=== PATIENT | male | born 1985 | race Caucasian/White ===

== ENCOUNTER 2019-08-05 18:16 | Inpatient (IN) | payer OTHER ==
[~2019-08-05] VITALS: Ht 180.3 cm; Wt 69.0 kg
--- NOTE | 2019-08-05 18:36 | NUR ---
"PT WAS AT [facility] YESTERDAY Dx WITH EPIDIDYMITIS ON ATB PO Rx CAME IN WITH FEVER OF 103.0 F" PT AAOX4, -SOB, NAD NOTED, VSS ,PENDING MD MCGINNIS
[2019-08-05] MEDS ORDERED: IBUPROFEN 600 MG TABLET PO ONE ×2 (19:00→19:21)
[2019-08-05] MEDS ORDERED: ACETAMINOPHEN ES 500 MG TABLET PO ONE (19:00)
[2019-08-05] MEDS ORDERED: IV NS 0.9% 1,000 ML BAG IV ONE (19:00)
[2019-08-05 19:09] LABS: BASOPHILS % (AUTO) 0.4 % (0.0-2.0); EOSINOPHILS % (AUTO) 0.2 % (0.0-6.0); HEMATOCRIT 36 % (39-51); LYMPHOCYTES # (AUTO) 1.3 /CMM (0.8-4.8); MEAN CORPUSCULAR HGB CONC 34 g/dl (31.0-36.0); MEAN CORPUSCULAR VOLUME 79 fL (80-96); MONOCYTES # (AUTO) 0.4 /CMM (0.1-1.30); MONOCYTES % (AUTO) 6.2 % (2.0-12.0); NEUTROPHILS # (AUTO) 4.6 /CMM (1.8-8.9); NEUTROPHILS % (AUTO) 72.2 % (43.0-81.0); PLATELET COUNT (AUTO) 214 /CMM (150-450); WHITE BLOOD COUNT (AUTO) 6.3 K/uL (4.3-11.0)
[2019-08-05] MEDS ORDERED: ACETAMINOPHEN ES 500 MG TABLET ONE (19:21)
[2019-08-05] MEDS ORDERED: CEFTRIAXONE 1GM BAG (ER ONLY) 1 GM/50 ML PIGGYBACK IV ONE (19:30)
[2019-08-05] MEDS ORDERED: DOXYCYCLINE 100 MG in IV D5W 100 ML IV ONE (19:30)
[2019-08-05 19:36] LABS: BILIRUBIN,DIRECT 0.1 mg/dL (0.0-0.2); BILIRUBIN,TOTAL 0.2 mg/dL (0.2-1.0); CALCIUM, SERUM 8.8 mg/dL (8.5-10.1); CREATININE 1.2 mg/dL (0.6-1.3); POTASSIUM 3.9 mmol/L (3.5-5.1); TOTAL PROTEIN, SERUM 8.5 g/dL (6.4-8.2)
--- NOTE | 2019-08-05 19:58 | NUR ---
PAGED DR MERCEDES
[2019-08-05] MEDS ORDERED: HYDROCODONE/APAP 10/325MG 1 EA TABLET PO PRN (20:30)
[2019-08-05] MEDS ORDERED: MAG HYDROX/AL HYDROX/SIMETH 30 ML UDC PO PRN (20:30)
[2019-08-05] MEDS ORDERED: Z GUARD REMEDY 2 OZ OINT TP PRN (20:30)
[2019-08-05] MEDS ORDERED: ONDANSETRON HCL/PF 4 MG/2 ML VIAL IVP PRN (20:30)
[2019-08-05] MEDS ORDERED: ZOLPIDEM TARTRATE 5 MG TABLET PO PRN (20:30)
[2019-08-05] MEDS ORDERED: MAGNESIUM HYDROXIDE 30 ML UDC PO PRN (20:30)
[2019-08-05] MEDS ORDERED: BICT1TAB PO (21:42)
[2019-08-05 21:50] VITALS: BP 127/75
[2019-08-05 22:00] VITALS: BP 127/75
--- NOTE | 2019-08-05 22:00 | NUR ---
MS/RN OPENING NOTES PT RECEIVED FROM VIA WHEELCHAIR. AAOX4. ON ROOM AIR, BREATHING EVEN AND UNLABORED. DENIES SOB AND PAIN AT THIS TIME. IN NO ACUTE DISTRESS. IV TO LAC PATENT AND INTACT WITH DOXYCYCLINE ONGOING FROM ER. BELONGINGS LIST COMPLETED. HOME MEDS TO BE SENT DOWN TO PHARMACY. ORIENTED PT TO ROOM AND CALL LIGHT. HOB ELEVATED. SIDE RAILS UPX2. BED IN LOW/LOCKED POSITION WITH CALL LIGHT IN REACH. WILL CONTINUE TO MONITOR
--- NOTE | 2019-08-05 22:12 | NUR ---
REPORT GIVEN TO HEMALATHA SHIPLEY FOR DEBORAH; PT WILL BE TRANSPORTED TO 3RD FLOOR VIA ACLS PROTOCOL
--- NOTE | 2019-08-05 22:45 | NUR ---
MS/RN NOTES DR. MERCEDES AT BEDSIDE TO ASSESS PT.
[2019-08-05] MEDS: IV NS 0.9% 1,000 ML IV PRN (23:02)
[2019-08-06 06:54] LABS: BASOPHILS % (AUTO) 0.3 % (0.0-2.0); EOSINOPHILS % (AUTO) 0.8 % (0.0-6.0); HEMATOCRIT 39 % (39-51); HEMOGLOBIN 12.5 g/dL (13.5-17.5); LYMPHOCYTES # (AUTO) 1.2 /CMM (0.8-4.8); LYMPHOCYTES % (AUTO) 18.9 % (20.0-44.0); MEAN CORPUSCULAR HGB CONC 33 g/dl (31.0-36.0); MEAN CORPUSCULAR VOLUME 81 fL (80-96); MONOCYTES # (AUTO) 0.5 /CMM (0.1-1.30); MONOCYTES % (AUTO) 7.4 % (2.0-12.0); NEUTROPHILS # (AUTO) 4.5 /CMM (1.8-8.9); NEUTROPHILS % (AUTO) 72.6 % (43.0-81.0); PLATELET COUNT (AUTO) 197 /CMM (150-450); RED BLOOD CELL COUNT(AUTO) 4.78 MIL/uL (4.5-6.0); WHITE BLOOD COUNT (AUTO) 6.2 K/uL (4.3-11.0)
--- NOTE | 2019-08-06 07:30 | NUR ---
RN MS NOTES PT IN BED, ASLEEP, EASY TO AROUSE, ALERT AND ORIENTED, NO COMPLAINT AT THIS TIME, BREATHING PATTERN NORMAL, CALL LIGHT WITHIN REACH, IV FLUIDS INFUSING WELL.
[2019-08-06 08:00] VITALS: BP 111/70
[2019-08-06 08:35] LABS: CALCIUM, SERUM 8.6 mg/dL (8.5-10.1); CREATININE 1.1 mg/dL (0.6-1.3); MAGNESIUM 2.1 mg/dL (1.8-2.4); PHOSPHORUS 2.8 mg/dL (2.5-4.9); POTASSIUM 3.7 mmol/L (3.5-5.1)
[2019-08-06] MEDS: IV NS 0.9% 1,000 ML IV PRN (10:39)
[2019-08-06 11:10] LABS: THYROID STIMULATING HORMONE 1.147 uIU/mL (0.358-3.74)
--- NOTE | 2019-08-06 11:30 | NUR ---
RN MS NOTES PT IN BED, AWAKE, ALERT AND ORIENTED, NO COMPLAINT OF PAIN OR ANY DISCOMFORT, RESPIRATIONS NORMAL, ABLE TO AMBULATE TO THE BATHROOM, CALL LIGHT WITHIN REACH, NEEDS ATTENDED.
[2019-08-06] MEDS: ACETAMINOPHEN 325 MG TABLET PO PRN (13:14)
--- NOTE | 2019-08-06 14:23 | NUR ---
RN MS NOTES PT SEEN AND EXAMINED BY DR. CURIEL, PT HAS TEMP OF 101.7, MD AWARE, PLAN OF CARE DISCUSSED BY MD AT BEDSIDE, PT VERBALIZED UNDERSTANDING.
--- NOTE | 2019-08-06 14:30 | NUR ---
RN MS NOTES RECHECKED PT'S TEMP, 101.3, NO COMPLAINT OF HEADACHE OR ANY DISCOMFORT, CONTINUOUSLY PROVIDED WITH COOLING MEASURES.
[2019-08-06 16:00] VITALS: BP 110/60
[2019-08-06] MEDS: CEFTRIAXONE 2 G in IV D5W 100 ML IV SCH (17:11)
--- NOTE | 2019-08-06 18:07 | NUR ---
RN MS NOTES PT IN BED, AWAKE, ALERT AND ORIENTED, NO COMPLAINT OF PAIN OR ANY DISCOMFORT, IV FLUIDS INFUSING WELL, NOT IN DISTRESS, PM MEDS GIVEN, RECHECKED TEMP 99.6, PT STATES THAT HE FEELS BETTER, CALL LIGHT PLACED WITHIN REACH, ALL NEEDS ATTENDED.
[2019-08-06] MEDS: HYDROCODONE/APAP 5/325MG 1 EACH TABLET PO PRN (19:12)
--- NOTE | 2019-08-06 19:20 | NUR ---
RN OPENING NOTES RECEIVED PATIENT FROM VIOLETTA OBREGON. PATIENT IN BED AWAKE, ALERT AND ORIENTED X 4. NO SIGNS OF RESPIRATORY DISTRESS. PATIENT DENIES SHORTNESS OF BREATH. PATIENT DENIES PAIN AT THIS TIME. IV FLUIDS INFUSING WELL, BUCK MIDLINE #18G. SAFETY PRECAUTIONS IMPLEMENTED; CALL LIGHT WITHIN REACH, BED LOWEST POSITION, BED LOCKED, SIDE RAILS UP X2. WILL CONTINUE TO MONITOR.
[2019-08-06] MEDS ORDERED: HOME MED MISCELLANEOUS PO SCH (20:00)
[2019-08-06 20:01] VITALS: BP 99/51
[2019-08-06] MEDS: DOXYCYCLINE 100 MG in IV D5W 100 ML IV SCH (20:08)
[2019-08-06 20:19] VITALS: BP 99/54
[2019-08-07] MEDS: ACETAMINOPHEN 325 MG TABLET PO PRN (02:39)
[2019-08-07 03:35] VITALS: BP 109/63
[2019-08-07] MEDS: HYDROCODONE/APAP 5/325MG 1 EACH TABLET PO PRN ×2 (03:35→21:05)
--- NOTE | 2019-08-07 06:37 | NUR ---
RN CLOSING NOTES PATIENT CURRENTLY RESTING IN BED, ASLEEP EASILY AROUSABLE BY VOICE. NO SIGNS OF RESPIRATORY DISTRESS. NO SIGNS OF SHORTNESS OF BREATH NOTED. IV FLUIDS CURRENTLY INFUSING AT 100 ML ON BUCK MIDLINE #18G, PATENT AND INTACT, NO INFILTRATION, NO REDNESS, NO INFECTION. ALL NEEDS ATTENDED TO AT THIS TIME. PATIENT IS AFEBRILE WITH LAST TEMPERATURE READING OF 98.4 F VIA ORAL. PATIENT HAS NO SIGNS OF FACIAL GRIMACING INDICATING PAIN OR DISCOMFORT AT THIS TIME. SAFETY PRECAUTIONS IMPLEMENTED; CALL LIGHT WITHIN REACH, BED LOWEST POSITION, BED LOCKED, SIDE RAILS UP X2. WILL ENDORSE TO DAYSHIFT NURSE FOR CONTINUITY OF CARE.
--- NOTE | 2019-08-07 07:20 | NUR ---
MS RN NOTES PATIENT IN BED, ALERT ORIENTED X 3. NO ACUTE DISTRESS NOTED BREATHING UNLABORED. IV ACCESS PATENT AND INTACT, NO REDNESS OR SWELLING NOTED. SAFETY MEASURES IN PLACE. CALL LIGHT WITHIN REACH. WILL CONTINUE TO MONITOR ACCORDINGLY.
[2019-08-07 08:00] VITALS: BP 101/55
[2019-08-07] MEDS: DOXYCYCLINE 100 MG in IV D5W 100 ML IV SCH ×2 (09:52→20:58)
[2019-08-07] MEDS: IV NS 0.9% 1,000 ML IV PRN ×2 (12:39)
[2019-08-07 15:45] VITALS: BP 103/58
[2019-08-07] MEDS: CEFTRIAXONE 2 G in IV D5W 100 ML IV SCH (16:03)
[2019-08-07 18:06] LABS: *ANA ANTI-CENTROMERE B AB <0.2 AI (0.0-0.9); *ANA ANTI-DNA(DS) AB, QN <1 IU/mL (0-9); *ANA ANTI-JO-1 <0.2 AI (0.0-0.9); *ANA ANTICHROMATIN ANTIBODY 0.2 AI (0.0-0.9); *ANA RNP ANTIBODIES 0.2 AI (0.0-0.9); *ANA SJOGREN'S ANTI-SS-A <0.2 AI (0.0-0.9); *ANA SJOGREN'S ANTI-SS-B <0.2 AI (0.0-0.9); *ANAANTI-SCLERODERMA-70 AB <0.2 AI (0.0-0.9); *ANASMITH AB <0.2 AI (0.0-0.9)
--- NOTE | 2019-08-07 19:25 | NUR ---
MS RN NOTES PATIENT IN BED, ALERT ORIENTED X 3. NO ACUTE DISTRESS NOTED BREATHING UNLABORED. IV ACCESS PATENT AND INTACT, NO REDNESS OR SWELLING NOTED. NEEDS ATTENDED AND ANTICIPATION. SAFETY MEASURES IN PLACE. CALL LIGHT WITHIN REACH. ENDORSED TO NIGHT NURSE FOR CONTINUITY OF CARE..
--- NOTE | 2019-08-07 19:30 | NUR ---
MS RN OPENING NOTES RECEIVED PATIENT FROM MORNING SHIFT, ALERT AND ORIENTED X 4. VERBALLY RESPONSIVE AND ABLE TO FOLLOW DIRECTIONS. BREATHING REGULAR AND UNLABORED ON ROOM AIR. LEFT UPPER ARM MIDLINE INTACT AND PATENT INFUSING WELL WITH NO BLEEDING OR S/S OF INFECTION SEEN. STILL OBSERVED WITH FACIAL REDNESS. BED LOW AND LOCKED ON SEMI FOWLERS POSITION. WILL CONTINUE TO MONITOR.
[2019-08-07 20:00] VITALS: BP 82/37
--- NOTE | 2019-08-07 21:10 | NUR ---
MS RN NOTES COMPLAINED OF 7/10 SCROTAL PAIN, NOTED WITH FACIAL GRIMACING AND GUARDING. REPORTED THAT IT'S MORE PAINFUL WHEN MOVING. NORCO 5/325 GIVEN BY MOUTH. WILL CONTINUE TO MONITOR.
--- NOTE | 2019-08-07 22:10 | NUR ---
MS RN NOTES PAIN LEVEL REASSESSMENT, REPORTED 0 PAIN.
[2019-08-08] MEDS: IV NS 0.9% 1,000 ML IV PRN ×2 (01:43→15:16)
[2019-08-08 06:16] LABS: BASOPHILS % (AUTO) 0.1 % (0.0-2.0); EOSINOPHILS % (AUTO) 4.1 % (0.0-6.0); HEMATOCRIT 31 % (39-51); HEMOGLOBIN 10.4 g/dL (13.5-17.5); LYMPHOCYTES % (AUTO) 39.4 % (20.0-44.0); MEAN CORPUSCULAR HGB CONC 34 g/dl (31.0-36.0); MEAN CORPUSCULAR VOLUME 79 fL (80-96); MONOCYTES # (AUTO) 0.2 /CMM (0.1-1.30); MONOCYTES % (AUTO) 8.1 % (2.0-12.0); NEUTROPHILS # (AUTO) 1.2 /CMM (1.8-8.9); NEUTROPHILS % (AUTO) 48.3 % (43.0-81.0); PLATELET COUNT (AUTO) 219 /CMM (150-450); RED BLOOD CELL COUNT(AUTO) 3.89 MIL/uL (4.5-6.0); WHITE BLOOD COUNT (AUTO) 2.6 K/uL (4.3-11.0)
[2019-08-08 06:38] LABS: CALCIUM, SERUM 8.2 mg/dL (8.5-10.1); CREATININE 1.1 mg/dL (0.6-1.3); MAGNESIUM 1.8 mg/dL (1.8-2.4); PHOSPHORUS 3.8 mg/dL (2.5-4.9); POTASSIUM 3.8 mmol/L (3.5-5.1)
--- NOTE | 2019-08-08 06:39 | NUR ---
MS RN CLOSING NOTES PATIENT IN BED, ALERT AND ORIENTED X 4. VERBALLY RESPONSIVE AND ABLE TO FOLLOW DIRECTIONS. BREATHING REGULAR AND UNLABORED ON ROOM AIR. LEFT UPPER ARM MIDLINE INTACT AND PATENT INFUSING WELL WITH NO BLEEDING OR S/S OF INFECTION SEEN. STILL OBSERVED WITH FACIAL RASH/REDNESS. ON IV ATB WITH NO ADVERSE REACTIONS NOTED. BED LOW AND LOCKED. WILL ENDORSE TO MORNING SHIFT FOR DEBORAH.
[2019-08-08 08:00] VITALS: BP 117/70
[2019-08-08] MEDS: DOXYCYCLINE 100 MG in IV D5W 100 ML IV SCH ×2 (08:52→20:45)
[2019-08-08] MEDS: CEFTRIAXONE 2 G in IV D5W 100 ML IV SCH (15:16)
[2019-08-08 16:00] VITALS: BP 97/55
--- NOTE | 2019-08-08 19:00 | NUR ---
MS RN NOTES PATIENT IN BED, ALERT ORIENTED X 3. NO ACUTE DISTRESS NOTED. BREATHING UNLABORED. IV ACCESS PATENT AND INTACT, NO REDNESS OR SWELLING NOTED. NEEDS ATTENDED AND ANTICIPATED.KEPT CLEAN DRY AND COMFORTABLE .SAFETY MEASURES IN PLACE. CALL LIGHT WITHIN REACH. WILL ENDORSE TO NIGHT NURSE FOR CONTINUITY OF CARE.
--- NOTE | 2019-08-08 19:45 | NUR ---
MS RN OPENING NOTES RECEIVED PATIENT FROM MORNING SHIFT, ALERT AND ORIENTED X 4. VERBALLY RESPONSIVE AND ABLE TO FOLLOW DIRECTIONS. BREATHING REGULAR AND UNLABORED ON ROOM AIR. LEFT UPPER ARM MIDLINE INTACT AND PATENT INFUSING WELL WITH NO BLEEDING OR S/S OF INFECTION NOTED. STILL OBSERVED WITH FACIAL REDNESS/RASH. BED LOW AND LOCKED ON SEMI FOWLERS POSITION. WILL CONTINUE TO MONITOR.
[2019-08-08 20:00] VITALS: BP 98/57
[2019-08-09] MEDS: IV NS 0.9% 1,000 ML IV PRN (01:47)
[2019-08-09 06:15] LABS: BASOPHILS % (AUTO) 1.1 % (0.0-2.0); EOSINOPHILS % (AUTO) 5.6 % (0.0-6.0); HEMATOCRIT 34 % (39-51); HEMOGLOBIN 11.1 g/dL (13.5-17.5); LYMPHOCYTES # (AUTO) 1.1 /CMM (0.8-4.8); LYMPHOCYTES % (AUTO) 39.1 % (20.0-44.0); MEAN CORPUSCULAR HGB CONC 33 g/dl (31.0-36.0); MEAN CORPUSCULAR VOLUME 79 fL (80-96); MONOCYTES # (AUTO) 0.2 /CMM (0.1-1.30); MONOCYTES % (AUTO) 8.5 % (2.0-12.0); NEUTROPHILS # (AUTO) 1.2 /CMM (1.8-8.9); NEUTROPHILS % (AUTO) 45.7 % (43.0-81.0); PLATELET COUNT (AUTO) 284 /CMM (150-450); RED BLOOD CELL COUNT(AUTO) 4.23 MIL/uL (4.5-6.0); WHITE BLOOD COUNT (AUTO) 2.7 K/uL (4.3-11.0)
[2019-08-09 06:38] LABS: CALCIUM, SERUM 8.5 mg/dL (8.5-10.1); CREATININE 1.1 mg/dL (0.6-1.3); MAGNESIUM 1.7 mg/dL (1.8-2.4); PHOSPHORUS 4.3 mg/dL (2.5-4.9); POTASSIUM 3.8 mmol/L (3.5-5.1)
--- NOTE | 2019-08-09 07:23 | NUR ---
RN OPENING NOTE PT WAS RECEIVED ASLEEP IN BED WITH SIDE RAILS UP X2, A/O X4 BREATHING EVEN AND UNLABORED ON RA WITH NO S/S OF ANY DISTRESS OR PAIN NOTED AT THIS TIME, IV IS PATENT AND INTACT WITH IVF RUNNING, PT NOTED TO BE AMBULATORY, NOTED TO SCORTAL SWELLING, SAFETY PRECAUTIONS IN PLACE, CALL LIGHT WITHIN REACH, WILL MONITOR PT ACCORDINGLY
[2019-08-09 08:00] VITALS: BP 94/55
[2019-08-09] MEDS ORDERED: DOXYCYCLINE HYCLATE (100 MG) 100 MG TABLET PO SCH (09:00)
[2019-08-09] MEDS: Magnesium 1GM/D5W 100ML PREMIX 100 ML IV SCH ×2 (09:45→10:34)
--- NOTE | 2019-08-09 14:06 | NUR ---
DISCHARGE NOTE PT WAS D/C AT THIS TIME IN MEDICALLY STABLE CONDITION BACK HOME WITH HIS GUARDIAN IN THEIR PRIVATE CAR. IV AND ID BAND WERE REMOVED. ALL D/C PAPERWORK, EXITCARE, AND BELONGING LIST WERE SIGNED AND DISCUSSED AND HANDED TO THE PT. PRESCRIPTION WAS GIVEN TO THE PATIENT WELL WHICH WERE HANDED TO HIM BY , PT REFUSED FOR PHOTO OF SKIN TO BE TAKEN STATING HE JUST WANTED TO HURRY UP AND LEAVE. ALL NEEDS WERE ATTENDED TO DURING HIS STAY. PT LEFT AT THIS TIME IN STABLE CONDITION.
[2019-08-09] MEDS ORDERED: CEFU500T66 PO (23:58)
[2019-08-09] MEDS ORDERED: DOXY100C41 PO (23:58)
== END 2019-08-09 14:06 | disposition home or self-care (01) | DRG 892 ==
LOC: ER 18:21 → MED 21:33
PROVIDERS: ATTEND Nurse Practitioner Acute Care
PROC: 05HB33Z Insertion of Infusion Device into Right Basilic Vein, Percutaneous Approach (ICD-10-PCS; principal; 2019-08-06)
DX: A41.9 Sepsis, unspecified organism (principal); B20 Human immunodeficiency virus [HIV] disease; E87.1 Hypo-osmolality and hyponatremia; E83.42 Hypomagnesemia; N45.3 Epididymo-orchitis; E44.1 Mild protein-calorie malnutrition; D50.9 Iron deficiency anemia, unspecified; Z91.041 Radiographic dye allergy status; Z91.018 Allergy to other foods; N50.89 Other specified disorders of the male genital organs; N43.3 Hydrocele, unspecified
CPT/HCPCS: 36415; 36569; 76870-TC; 80048-TC; 80061-TC; 80076-TC; 83605-TC; 83735-TC; 84100-TC; 84443-TC; 85025-TC; 86225; 86235; 87040-TC; 87081-TC; G0378; J0696; J3475; J3490; J7030; J7040; J7060

== ENCOUNTER 2019-09-02 20:44 | Emergency (ER) | payer OTHER ==
[~2019-09-02] VITALS: Ht 180.3 cm; Wt 70.3 kg
[~2019-09-02 20:44] MED LIST: BICT1TAB PO; CEFU500T66 PO; DOXY100C41 PO
[2019-09-02 21:38] VITALS: BP 127/76
[2019-09-02] MEDS ORDERED: CLINDAMYCIN HCL 150 MG CAPSULE PO ONE ×2 (22:30→22:32)
== END 2019-09-02 22:36 | disposition home or self-care (01) ==
LOC: ER 20:48
DX: R21 Rash and other nonspecific skin eruption (principal); K58.9 Irritable bowel syndrome, unspecified; Z88.6 Allergy status to analgesic agent; Z79.899 Other long term (current) drug therapy; Z91.018 Allergy to other foods

== ENCOUNTER 2019-09-27 15:55 | Emergency (ER) | payer OTHER ==
[~2019-09-27] VITALS: Ht 180.3 cm; Wt 70.3 kg
[2019-09-27 16:13] VITALS: BP 110/66
[2019-09-27] MEDS ORDERED: FLUORESCEIN SODIUM OPHTH 1 EA STRIP ONE (16:18)
== END 2019-09-27 17:39 | disposition home or self-care (01) ==
LOC: ER 15:56
DX: H57.89 Other specified disorders of eye and adnexa (principal); K58.9 Irritable bowel syndrome, unspecified; Z97.3 Presence of spectacles and contact lenses; Z88.6 Allergy status to analgesic agent; Z79.899 Other long term (current) drug therapy; Z91.018 Allergy to other foods

== ENCOUNTER 2020-04-22 22:32 | Emergency (ER) | payer OTHER ==
[~2020-04-22] VITALS: Ht 180.3 cm; Wt 68.0 kg
--- NOTE | 2020-04-22 22:50 | NUR ---
PT BIBSELF C/O TINGLING SENSATION IN MOUTH. PT STATES HE IS ALLERGIC TO [place] AND HAD CHICKEN AND WAS UNAWARE IT WAS GLAZED WITH [place]. 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 AAOX4. VITAL SIGNS STABLE. RESPIRATIONS EVEN AND UNLABORED. SKIN INTACT. AMBULATORY WITH STEADY GAIT. NO ACUTE DISTRESS NOTED AT THIS TIME. WILL CONTINUE TO MONITOR
[2020-04-22] MEDS ORDERED: diphenhydrAMINE HCL 50 MG/ML VIAL ONE (22:57)
[2020-04-22] MEDS ORDERED: DEXAMETHASONE SOD PHOSPHATE 10 MG/ML VIAL ONE (22:57)
[2020-04-22] MEDS ORDERED: DEXAMETHASONE SOD PHOSPHATE 10 MG/ML VIAL IM ONE (23:00)
[2020-04-22] MEDS ORDERED: diphenhydrAMINE HCL 50 MG/ML VIAL IM ONE (23:00)
--- NOTE | 2020-04-22 23:30 | NUR ---
Patient discharged to home in stable condition. Written and verbal after care instructions given. Patient verbalizes understanding of instruction.Pt ambulatory with a steady gait
[2020-04-22 23:50] VITALS: BP 140/77
== END 2020-04-22 23:51 | disposition home or self-care (01) ==
LOC: ER 22:32
DX: T78.1XXA Other adverse food reactions, not elsewhere classified, initial encounter (principal); Z91.018 Allergy to other foods; Z91.048 Other nonmedicinal substance allergy status; Z79.899 Other long term (current) drug therapy; X58.XXXA Exposure to other specified factors, initial encounter
CPT/HCPCS: 96372 ×2; 99284; J1100; J1200

== ENCOUNTER 2020-05-06 23:19 | Emergency (ER) | payer OTHER ==
[~2020-05-06] VITALS: Ht 172.7 cm; Wt 63.5 kg
[2020-05-06 23:19] VITALS: BP 105/79
[2020-05-06] MEDS ORDERED: CLINDAMYCIN 900 MG/6 ML VIAL ONE (23:53)
[2020-05-07] MEDS ORDERED: CLINDAMYCIN 900 MG/6 ML VIAL IM ONE
--- NOTE | 2020-05-07 | NUR ---
Patient discharged to home in stable condition. Written and verbal after care instructions given. Patient verbalizes understanding of instruction.
== END 2020-05-07 00:01 | disposition home or self-care (01) ==
LOC: ER 23:19
DX: L03.114 Cellulitis of left upper limb (principal); K58.9 Irritable bowel syndrome, unspecified; Z91.018 Allergy to other foods; Z91.048 Other nonmedicinal substance allergy status
CPT/HCPCS: 96372; 99283; J3490

== ENCOUNTER 2021-06-03 05:58 | Emergency (ER) | payer OTHER ==
[~2021-06-03] VITALS: Ht 180.3 cm; Wt 63.5 kg
[~2021-06-03 05:58] MED LIST changes: +DOXY-326 PO; -DOXY100C41 PO
--- NOTE | 2021-06-03 06:08 | NUR ---
Pt bibself c/o headache on rt side of head. pt aaox4 breathing evenly and unlabored. pt states "its a pressure that is sharp that i can feel in my teeth, ear, and brain". pt too 2 motrin and 2 aleive, without any relief. pt denies trauma, "it just started hurting when i was watching tv". pt attached to monitor and pox. Pt given call light within reach
--- NOTE | 2021-06-03 06:20 | NUR ---
pt placed on 2L O2 for comfort
[2021-06-03] MEDS ORDERED: diphenhydrAMINE HCL 50 MG/ML VIAL ONE (06:26)
[2021-06-03] MEDS ORDERED: SUMATRIPTAN SUCCINATE 6 MG/0.5 ML VIAL SQ ONE (06:27)
[2021-06-03] MEDS: SUMATRIPTAN SUCCINATE 6 MG/0.5 ML VIAL SQ ONE (06:30)
[2021-06-03] MEDS ORDERED: MORPHINE SULFATE INJ 2 MG/ML DISP.SYRIN IM ONE (06:30)
[2021-06-03] MEDS: diphenhydrAMINE HCL 50 MG/ML VIAL IV ONE (06:30)
--- NOTE | 2021-06-03 06:39 | NUR ---
blood obtained and sent to lab
--- NOTE | 2021-06-03 06:46 | NUR ---
taken to radiology
[2021-06-03 06:47] LABS: BASOPHILS % (AUTO) 0.1 % (0.0-2.0); EOSINOPHILS % (AUTO) 0.2 % (0.0-6.0); HEMATOCRIT 31 % (39-51); HEMOGLOBIN 9.9 g/dL (13.5-17.5); LYMPHOCYTES # (AUTO) 1.2 K/uL (0.8-4.8); LYMPHOCYTES % (AUTO) 28.6 % (20.0-44.0); MEAN CORPUSCULAR HGB CONC 32 g/dl (31.0-36.0); MEAN CORPUSCULAR VOLUME 76 fL (80-96); MONOCYTES # (AUTO) 0.5 K/uL (0.1-1.30); MONOCYTES % (AUTO) 10.7 % (2.0-12.0); NEUTROPHILS # (AUTO) 2.6 K/uL (1.8-8.9); NEUTROPHILS % (AUTO) 60.4 % (43.0-81.0); PLATELET COUNT (AUTO) 321 K/uL (150-450); RED BLOOD CELL COUNT(AUTO) 4.04 MIL/uL (4.5-6.0); WHITE BLOOD COUNT (AUTO) 4.3 K/uL (4.3-11.0)
--- NOTE | 2021-06-03 06:52 | NUR ---
returned from radiology
[2021-06-03 06:55] LABS: CALCIUM, SERUM 8.3 mg/dL (8.5-10.1); CREATININE 1.3 mg/dL (0.6-1.3); POTASSIUM 3.4 mmol/L (3.5-5.1)
[2021-06-03 07:00] LABS: ALBUMIN 2.4 g/dL (3.4-5.0); BILIRUBIN,DIRECT 0.1 mg/dL (0.0-0.2); BILIRUBIN,TOTAL 0.2 mg/dL (0.2-1.0); TOTAL PROTEIN, SERUM 8.8 g/dL (6.4-8.2)
[2021-06-03] MEDS ORDERED: SUMA100T16 PO (07:25)
--- NOTE | 2021-06-03 07:30 | NUR ---
Patient discharged to home in stable condition. Written and verbal after care instructions given. Patient verbalizes understanding of instruction. IV removed. Catheter intact and site benign. Pressure and 4x4 applied to site. No bleeding noted. Pt ambulatory with a steady gait
[2021-06-03 07:31] VITALS: BP 115/85
== END 2021-06-03 07:27 | disposition home or self-care (01) ==
LOC: ER 06:27
DX: G44.009 Cluster headache syndrome, unspecified, not intractable (principal); Z98.890 Other specified postprocedural states; Z88.8 Allergy status to other drugs, medicaments and biological substances; Z91.018 Allergy to other foods
CPT/HCPCS: 36415; 70450; 80048; 80076; 85025; 85652; 96372; 96374; 99285; J1200; J3030

== ENCOUNTER 2021-08-06 14:12 | Emergency (ER) | payer OTHER ==
[~2021-08-06] VITALS: Ht 180.3 cm; Wt 65.8 kg
[~2021-08-06 14:12] MED LIST changes: +SUMA100T16 PO
--- NOTE | 2021-08-06 14:20 | NUR ---
TO ER BED 6 FOR MD MCGINNIS
--- NOTE | 2021-08-06 14:25 | NUR ---
PAIN AND ON & OFF BLEEDING HEMORRHOID,TEMPORARY RELIEF WITH LIDOCAINE OINTMENT. RATES PAIN 8/10. ABDOMEN SOFT AND NON-DISTENDED. WILL CONTINUE TO MONITOR THE PATIENT.
--- NOTE | 2021-08-06 14:26 | NUR ---
DR HERRERA AT BEDSIDE
--- NOTE | 2021-08-06 14:56 | NUR ---
Patient discharged to home in stable condition. Written and verbal after care instructions given. Patient verbalizes understanding of instruction.
[2021-08-06 14:57] VITALS: BP 117/63
== END 2021-08-06 14:57 | disposition home or self-care (01) ==
LOC: ER 14:15
DX: K64.5 Perianal venous thrombosis (principal); Z88.6 Allergy status to analgesic agent; Z91.018 Allergy to other foods; Z79.899 Other long term (current) drug therapy